=== PATIENT | female | born 2000 | race Caucasian/White ===

== ENCOUNTER 2020-11-17 22:49 | Outpatient (CLI) | payer OTHER ==
[~2020-11-17] VITALS: Ht 165.1 cm; Wt 90.9 kg
--- NOTE | 2020-11-17 23:00 | NUR ---
PT ARRIVES AMBULATORY TO UNIT, TEARFUL, FOLLOWING ARGUMENT WITH INTOXICATED . [place] WITH NO RECORDS AVAILABLE. REPORTS HER DOCTOR IS IN [facility]. DENIES CONTRACTIONS, REPORTS LEAKING OF FLUID, REPORTS POSITIVE MOVEMENT. REPORTS SHE IS G4 L0. WAS TOLD LAST WEEK SHE HAD "LOW AMNIOTIC FLUID" AND IS HAVING A FOLLOW UP ULTRASOUND THIS COMING THURSDAY. REPORTS DUE DATE OF 12/27/20. DENIES COMPLICATION OUTSIDE OF ANXIETY AND DEPRESSION. 2300: PLACED ON EFM/TOCO. CATEGORY 1 STRIP. NO CONCTRACTIONS. NO LEAKING OF FLUID VISIBLE. 0: AMNISURE TEST NEGATIVE. NO LEAKING OF FLUID NOTED ON GLOVE.
[2020-11-17] MEDS ORDERED: ZOLOFT 100MG100 MG PO (23:05)
[2020-11-17 23:35] VITALS: BP 137/79; PULSE 113; TEMP 98.6
== END 2020-11-17 23:46 | disposition home or self-care (01) ==
LOC: LDR 22:49 → LDRO 22:49 → LDR 23:14 → LDRO 23:45
DX: Z34.90 Encounter for supervision of normal pregnancy, unspecified, unspecified trimester (principal); Z3A.00 Weeks of gestation of pregnancy not specified
CPT/HCPCS: OP